=== PATIENT | male | born 1965 | race Caucasian/White ===

== ENCOUNTER 2022-04-02 13:50 | Inpatient (IN) | payer BC, OTHER ==
[2022-04-02 15:21] VITALS: BMI 21.1
[2022-04-02] MEDS ORDERED: NALOXONE HCL (KLOXXADO) 8 MG SPRAY NS PRN (16:09)
[2022-04-02] MEDS ORDERED: IBUPROFEN 400 MG TABLET (FP) PO PRN (16:09)
[2022-04-02] MEDS ORDERED: ONDANSETRON *ODT* 4 MG TABLET SL PRN (16:09)
[2022-04-02] MEDS ORDERED: LOPERAMIDE HCL 2 MG CAPSULE PO PRN (16:09)
[2022-04-02] MEDS ORDERED: METHOCARBAMOL 500 MG TABLET PO PRN (16:09)
[2022-04-02] MEDS ORDERED: NICOTINE 10 MG CARTRIDGE (INHALER) IH PRN (16:09)
[2022-04-02] MEDS ORDERED: IBUPROFEN 600 MG TABLET (FP) PO PRN (16:09)
[2022-04-02] MEDS ORDERED: DICYCLOMINE HCL 10 MG CAPSULE PO PRN (16:09)
[2022-04-02] MEDS ORDERED: BISMUTH SUBSALICYLATE 524 MG/30 ML PO PRN (16:09)
[2022-04-02] MEDS ORDERED: MAGNESIUM HYDROX 2400MG/30ML ORAL SUSPENSION 30 ML CUP PO PRN (16:09)
[2022-04-02] MEDS ORDERED: BENZOCAINE/MENTHOL (CHLORASEPTIC ) LOZENGE MM PRN (16:09)
[2022-04-02] MEDS ORDERED: hydrOXYzine PAMOATE 25 MG CAPSULE (FP) PO PRN (16:09)
[2022-04-02] MEDS ORDERED: ACETAMINOPHEN 325 MG TABLET (FP) PO PRN ×2 (16:09)
[2022-04-02] MEDS ORDERED: POLYETHYLENE GLYCOL (HEALTHYLAX) 3350 17 GM PACKET PO PRN (16:09)
[2022-04-02] MEDS ORDERED: MAG HYDROX/AL HYDROX/SIMETH 30 ML UNIT-DOSE CUP PO PRN (16:09)
[2022-04-02] MEDS ORDERED: LORazepam 1 MG TABLET PO PRN (16:09)
[2022-04-02] MEDS ORDERED: traZODone HCL 50 MG TABLET (FP) PO ONE ×2 (17:11→22:00)
[2022-04-02] MEDS: LORazepam 2 MG TABLET PO SCH ×2 (18:15→22:00)
[2022-04-02] MEDS: NICOTINE 14 MG/24 HOURS TOPICAL PATCH TD SCH (18:38)
[2022-04-02] MEDS: PRENATAL VITAMINS W/ FOLIC ACID TABLET (FP) PO SCH (19:15)
[2022-04-02] MEDS: THIAMINE HCL 100 MG TABLET (FP) PO SCH (21:50)
[2022-04-02] MEDS: MYCOPHENOLATE MOFETIL 500 MG TABLET PO SCH (23:25)
[2022-04-02] MEDS: TACROLIMUS ANHYDROUS 1 MG CAPSULE PO SCH (23:25)
[2022-04-02] MEDS: MELATONIN 5 MG TABLETS PO SCH (23:35)
[2022-04-03] MEDS: ALBUTEROL SO4 HFA INHALER IH PRN (03:09)
[2022-04-03] MEDS: LORazepam 2 MG TABLET PO SCH ×4 (05:39→22:19)
[2022-04-03] MEDS: BICTEGRAV/EMTRICIT/TENOFOV (BIKTARVY) 50-200-25 MG TABLET PO SCH (09:04)
[2022-04-03] MEDS: PRENATAL VITAMINS W/ FOLIC ACID TABLET (FP) PO SCH (10:37)
[2022-04-03] MEDS: NICOTINE 14 MG/24 HOURS TOPICAL PATCH TD SCH (10:37)
[2022-04-03] MEDS: TACROLIMUS ANHYDROUS 1 MG CAPSULE PO SCH ×2 (10:37→22:19)
[2022-04-03] MEDS: MYCOPHENOLATE MOFETIL 500 MG TABLET PO SCH ×2 (10:41→22:19)
[2022-04-03 12:52] LABS: HEMATOCRIT 36.4 % (35.4-49); MCH 30.9 pg (25.7-33.7); MCHC 32.9 g/dl (32.0-35.9); MEAN PLT VOLUME 10.8 fl (7.5-11.1); PLATELET COUNT 179 10^3/uL (134-434); RBC 3.87 M/mm3 (4.00-5.60); RDW 14.8 % (11.9-15.9); WHITE BLOOD COUNT 8.9 K/mm3 (4.0-10.0)
[2022-04-03 13:34] LABS: ALBUMIN 3.4 g/dl (3.4-5.0); BLOOD UREA NITROGEN 21.1 mg/dL (7-18); CALCIUM 9.2 mg/dL (8.5-10.1)
[2022-04-03 13:37] LABS: CREATININE 1.5 mg/dL (0.55-1.3)
[2022-04-03 13:39] LABS: BILIRUBIN,TOTAL 1.3 mg/dL (0.2-1); TOT PROT 8.2 g/dl (6.4-8.2)
[2022-04-03] MEDS: THIAMINE HCL 100 MG TABLET (FP) PO SCH (22:19)
[2022-04-03] MEDS ORDERED: traZODone HCL 50 MG TABLET (FP) PO ONE (23:12)
[2022-04-03] MEDS: MELATONIN 5 MG TABLETS PO SCH (23:35)
[2022-04-04] MEDS: LORazepam 1 MG TABLET PO SCH ×4 (06:17→22:19)
[2022-04-04] MEDS: BICTEGRAV/EMTRICIT/TENOFOV (BIKTARVY) 50-200-25 MG TABLET PO SCH (08:06)
[2022-04-04] MEDS: PRENATAL VITAMINS W/ FOLIC ACID TABLET (FP) PO SCH (10:17)
[2022-04-04] MEDS: MYCOPHENOLATE MOFETIL 500 MG TABLET PO SCH ×2 (10:19→22:20)
[2022-04-04] MEDS: TACROLIMUS ANHYDROUS 1 MG CAPSULE PO SCH ×2 (10:19→22:20)
[2022-04-04] MEDS: NICOTINE 14 MG/24 HOURS TOPICAL PATCH TD SCH (10:20)
[2022-04-04] MEDS: LACTULOSE 20 GM/30 ML UDC (FOR ORAL USE ONLY) PO SCH ×4 (10:21→22:21)
[2022-04-04] MEDS ORDERED: methaDONE HCL 10 MG TABLET PO ONE (12:01)
[2022-04-04] MEDS: ALBUTEROL SO4 HFA INHALER IH PRN (22:22)
[2022-04-04] MEDS: THIAMINE HCL 100 MG TABLET (FP) PO SCH (22:22)
[2022-04-04] MEDS: MELATONIN 5 MG TABLETS PO SCH (22:53)
[2022-04-05] MEDS ORDERED: LORazepam 0.5 MG TABLET PO PRN
[2022-04-05] MEDS: LORazepam 0.5 MG TABLET PO SCH ×4 (05:38→22:52)
[2022-04-05] MEDS ORDERED: methaDONE HCL 10 MG TABLET PO SCH (06:00)
[2022-04-05] MEDS: BICTEGRAV/EMTRICIT/TENOFOV (BIKTARVY) 50-200-25 MG TABLET PO SCH (09:16)
[2022-04-05] MEDS: ARIPiprazole 10 MG TABLET PO SCH (10:37)
[2022-04-05] MEDS: PRENATAL VITAMINS W/ FOLIC ACID TABLET (FP) PO SCH (10:37)
[2022-04-05] MEDS: TACROLIMUS ANHYDROUS 1 MG CAPSULE PO SCH ×2 (10:39→22:25)
[2022-04-05] MEDS: NICOTINE 14 MG/24 HOURS TOPICAL PATCH TD SCH (10:39)
[2022-04-05] MEDS: MYCOPHENOLATE MOFETIL 500 MG TABLET PO SCH ×2 (10:39→22:51)
[2022-04-05] MEDS: LACTULOSE 20 GM/30 ML UDC (FOR ORAL USE ONLY) PO SCH ×4 (10:40→22:54)
[2022-04-05 12:58] LABS: BLOOD UREA NITROGEN 17.6 mg/dL (7-18)
[2022-04-05 13:03] LABS: BILIRUBIN,TOTAL 0.4 mg/dL (0.2-1)
[2022-04-05] MEDS: traZODone HCL 100 MG TABLET (FP) PO SCH (22:52)
[2022-04-05] MEDS: THIAMINE HCL 100 MG TABLET (FP) PO SCH (22:53)
[2022-04-06] MEDS ORDERED: LORazepam 0.5 MG TABLET PO ONE (05:00)
[2022-04-06] MEDS: BICTEGRAV/EMTRICIT/TENOFOV (BIKTARVY) 50-200-25 MG TABLET PO SCH (08:36)
[2022-04-06] MEDS: ARIPiprazole 10 MG TABLET PO SCH (10:43)
[2022-04-06] MEDS: TACROLIMUS ANHYDROUS 1 MG CAPSULE PO SCH ×2 (10:44→21:56)
[2022-04-06] MEDS: MYCOPHENOLATE MOFETIL 500 MG TABLET PO SCH ×2 (10:44→21:56)
[2022-04-06] MEDS: LACTULOSE 20 GM/30 ML UDC (FOR ORAL USE ONLY) PO SCH ×4 (10:45→21:57)
[2022-04-06] MEDS: PRENATAL VITAMINS W/ FOLIC ACID TABLET (FP) PO SCH (10:46)
[2022-04-06] MEDS: NICOTINE 14 MG/24 HOURS TOPICAL PATCH TD SCH (10:46)
[2022-04-06] MEDS: traZODone HCL 100 MG TABLET (FP) PO SCH (21:56)
[2022-04-06] MEDS: THIAMINE HCL 100 MG TABLET (FP) PO SCH (21:57)
[2022-04-07] MEDS: BICTEGRAV/EMTRICIT/TENOFOV (BIKTARVY) 50-200-25 MG TABLET PO SCH (08:43)
[2022-04-07] MEDS: MYCOPHENOLATE MOFETIL 500 MG TABLET PO SCH ×2 (09:24→21:17)
[2022-04-07] MEDS: TACROLIMUS ANHYDROUS 1 MG CAPSULE PO SCH ×2 (09:25→21:17)
[2022-04-07] MEDS: ARIPiprazole 10 MG TABLET PO SCH (09:25)
[2022-04-07] MEDS: LACTULOSE 20 GM/30 ML UDC (FOR ORAL USE ONLY) PO SCH ×4 (09:25→21:22)
[2022-04-07] MEDS: NICOTINE 14 MG/24 HOURS TOPICAL PATCH TD SCH (09:25)
[2022-04-07] MEDS: PRENATAL VITAMINS W/ FOLIC ACID TABLET (FP) PO SCH (09:25)
[2022-04-07] MEDS: ALBUTEROL SO4 HFA INHALER IH PRN (18:51)
[2022-04-07] MEDS: THIAMINE HCL 100 MG TABLET (FP) PO SCH (21:17)
[2022-04-07] MEDS: traZODone HCL 100 MG TABLET (FP) PO SCH (21:19)
[2022-04-08] MEDS: BICTEGRAV/EMTRICIT/TENOFOV (BIKTARVY) 50-200-25 MG TABLET PO SCH (07:54)
[2022-04-08] MEDS: ARIPiprazole 10 MG TABLET PO SCH (09:08)
[2022-04-08] MEDS: MYCOPHENOLATE MOFETIL 500 MG TABLET PO SCH (09:09)
[2022-04-08] MEDS: NICOTINE 14 MG/24 HOURS TOPICAL PATCH TD SCH (09:09)
[2022-04-08] MEDS: LACTULOSE 20 GM/30 ML UDC (FOR ORAL USE ONLY) PO SCH (09:09)
[2022-04-08] MEDS: TACROLIMUS ANHYDROUS 1 MG CAPSULE PO SCH (09:09)
[2022-04-08] MEDS: PRENATAL VITAMINS W/ FOLIC ACID TABLET (FP) PO SCH (09:09)
[2022-04-08 09:16] VITALS: BP 109/45; PULSE 62; RESP 18; TEMP 96.9
== END 2022-04-08 11:05 | disposition home or self-care (01) | DRG 897 ==
LOC: YASAS 13:50 → Y6N 16:19
PROVIDERS: ADMIT Allergy & Immunology; ATTEND Surgery
PROC: HZ2ZZZZ Detoxification Services for Substance Abuse Treatment (ICD-10-PCS; principal; 2022-04-02)
DX: F10.230 Alcohol dependence with withdrawal, uncomplicated (principal); F14.20 Cocaine dependence, uncomplicated; F11.20 Opioid dependence, uncomplicated; F19.282 Other psychoactive substance dependence with psychoactive substance-induced sleep disorder; Z94.4 Liver transplant status; F19.24 Other psychoactive substance dependence with psychoactive substance-induced mood disorder; F17.210 Nicotine dependence, cigarettes, uncomplicated; F25.1 Schizoaffective disorder, depressive type; Z21 Asymptomatic human immunodeficiency virus [HIV] infection status; G62.9 Polyneuropathy, unspecified; J45.909 Unspecified asthma, uncomplicated; R00.1 Bradycardia, unspecified; R79.89 Other specified abnormal findings of blood chemistry; R63.4 Abnormal weight loss; Z68.21 Body mass index [BMI] 21.0-21.9, adult
CPT/HCPCS: 36415; 80053; 82140; 82247; 84520; 85027; 86780; 93005; 93010; C9803-CS; J7517; U0003; U0005